=== PATIENT | female | born 1950 | race Caucasian/White ===

== ENCOUNTER 2016-09-28 17:25 | Emergency (ER) | payer OTHER, MEDICARE ==
[~2016-09-28] VITALS: Ht 175.3 cm; Wt 77.3 kg
[2016-09-28 17:33] VITALS: BP 181/94; PULSE 65; RESP 15; O2SAT 96
[2016-09-28] MEDS ORDERED: HYDROcodone-APAP 5-325 mg Tablet PO ONE (20:55)
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
[2016-09-28] MEDS ORDERED: IBUP-1827 PO (21:40)
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
[2016-09-28 21:58] VITALS: BP 178/88; PULSE 66; RESP 16; O2SAT 94
== END 2016-09-28 21:48 | disposition home or self-care (01) ==
LOC: SED 17:25
DX: M25.512 Pain in left shoulder (principal); V74.6XXA Passenger on bus injured in collision with heavy transport vehicle or bus in traffic accident, initial encounter; Y93.89 Activity, other specified; Y92.410 Unspecified street and highway as the place of occurrence of the external cause; Y99.8 Other external cause status